=== PATIENT | female | born 1985 | race Caucasian/White ===

== ENCOUNTER 2020-01-15 18:54 | Emergency (ER) | payer BC ==
[~2020-01-15] VITALS: Ht 162.6 cm; Wt 63.4 kg
--- NOTE | 2020-01-15 20:48 | NUR ---
PT WALKED BACK FROM LOBBY TO ROOM AT THIS TIME. STEADY UPON AMBULATION. NO ACUTE DISTRESS NOTED AT THIS TIME.
[2020-01-15] MEDS ORDERED: KETOROLAC 30 MG/1 ML IM ONE (21:30)
[2020-01-15] MEDS ORDERED: KETOROLAC 30 MG/1 ML ONE (21:52)
--- NOTE | 2020-01-15 22:18 | NUR ---
PT APPEARS TO BE RESTING COMFORTABLY ON GURNEY. NO ACUTE DISTRESS NOTED AT THIS TIME. SKIN PWD. REPS EVEN AND UNLABORED. PT CHATTING PLEASANTLY WITH RN. PT MEDICATED ORDERED FOR THE "NUMBNESS/TINGLING IN MY ARM, LIKE IT FELL ASLEEP". PT REQUESTED FOOD. DISCUSSED WITH BHARGAV IRIZARRY RN TO WAIT UNTIL US RESULTS ARE BACK. PT ON CONT BP AND SPO2 MONITORS. CALL LIGHT WITHIN REACH. WILL CONT TO MONITOR PT.
--- NOTE | 2020-01-15 22:20 | NUR ---
REPORT TO DANIEL MENDEZ WHO ASSUMED CARE OF PT.
[2020-01-15 23:12] VITALS: BP 123/81
== END 2020-01-15 23:14 | disposition home or self-care (01) ==
LOC: ED 23:09
DX: M79.621 Pain in right upper arm (principal); R20.0 Anesthesia of skin; R21 Rash and other nonspecific skin eruption; M79.89 Other specified soft tissue disorders
CPT/HCPCS: 93971; 96372; 99284; J1885